=== PATIENT | male | born 1985 | race Caucasian/White ===

== ENCOUNTER 2018-01-22 16:38 | Emergency (ER) | payer OTHER ==
[~2018-01-22 16:38] MED LIST: LORAZEPAM 2 MG INJ
[2018-01-22 16:51] LABS: ADD MAN DIFF? NO
[2018-01-22 16:53] LABS: WHITE BLOOD COUNT 7.1 10^3/ul (4.8-10.8)
[2018-01-22 16:53] LABS: BASOPHILS % 0.3 % (0.0-2.0); EOSINOPHILS # 0.1 10^3/ul (0.0-0.5); EOSINOPHILS % 1.4 % (0.0-7.0); HEMATOCRIT 40.2 % (42.0-52.0); HEMOGLOBIN 14.1 g/dl (14.0-18.0); LYMPHOCYTES # 2.1 10^3/ul (0.8-2.9); MEAN CORPUSCULAR HEMOGLOBIN 33.3 pg (29.0-33.0); MEAN CORPUSCULAR HGB CONC 35.1 g/dl (32.0-37.0); MEAN CORPUSCULAR VOLUME 94.8 fl (82.0-101.0); MONOCYTE # 0.6 10^3/ul (0.3-0.9); MONOCYTES % 8.8 % (0.0-11.0); NEUTROPHIL # 4.2 10^3/ul (1.6-7.5); NEUTROPHILS % 59.4 % (39.0-77.0); PLATELET COUNT 275 10^3/UL (140-415); RED BLOOD COUNT 4.24 10^6/ul (4.70-6.10); RED CELL DISTRIBUTION WIDTH 13.1 % (11.5-14.5)
[2018-01-22] MEDS: SOD CHLORIDE 0.9% 1,000 ML IV (17:05)
[2018-01-22] MEDS: LORAZEPAM 2 MG INJ IM (17:05)
[2018-01-22 17:13] LABS: ALANINE AMINOTRANSFERASE 375 IU/L (13-69); ALBUMIN 4.3 g/dl (3.3-4.9); ALBUMIN/GLOBULIN RATIO 1.26; ALKALINE PHOSPHATASE 84 IU/L (42-121); ANION GAP 16 (8-16); ASPARTATE AMINO TRANSFERASE 328 IU/L (15-46); BILIRUBIN,INDIRECT 0.1 mg/dl (0-1.1); BILIRUBIN,TOTAL 0.1 mg/dl (0.2-1.3); BLOOD UREA NITROGEN 7 mg/dl (7-20); CARBON DIOXIDE 24 mmol/L (21-31); CHLORIDE 106 mmol/L (97-110); CREATININE 0.97 mg/dl (0.61-1.24); GLUCOSE 129 mg/dl (70-220); POTASSIUM 3.7 mmol/L (3.5-5.1); SODIUM 142 mmol/L (135-144); TOTAL PROTEIN 7.7 g/dl (6.1-8.1)
[2018-01-22] MEDS: LIDOCAINE 1% (MDV) 10 ML INJ INJ (19:33)
[2018-01-22] MEDS: LIDOCAINE 1% (MDV) 20 ML INJ INJ (19:54)
[2018-01-22] MEDS: DIPHTH/TET/ACEL PERTUSS (ADULT) 0.5 ML VIAL IM* (20:11)
[2018-01-23] MEDS: AMPICILLIN/SULB 3 GM/NS (PMX) 100 ML IVPB (00:21)
== END 2018-01-23 06:53 | disposition home or self-care (01) ==
LOC: E/R 01-23 06:53
DX: S01.311A Laceration without foreign body of right ear, initial encounter (principal); F10.920 Alcohol use, unspecified with intoxication, uncomplicated; H11.32 Conjunctival hemorrhage, left eye; R00.0 Tachycardia, unspecified; Y04.0XXA Assault by unarmed brawl or fight, initial encounter; Z23 Encounter for immunization
CPT/HCPCS: 12011; 36415; 70450; 80053; 80307; 85025; 90471; 90715; 93005; 96372; 96374; 99291-25